=== PATIENT | male | born 1960 | race Caucasian/White ===

== ENCOUNTER 2019-11-17 10:31 | Outpatient (CLI) | payer OTHER, SELFPAY ==
--- NOTE | ~2019-11-17 | NM_ITS ---
EXAMINATION: NM bone scan whole body DATE: 11/17/2019 14:15 INDICATION: Prostate cancer. TECHNIQUE: 24.5 mCi Tc-99m HDP was administered intravenously. Delayed whole-body scintigrams were o btained. COMPARISON: CT abdomen and pelvis 11/17/2019 FINDINGS: There is joint-centered increased activity in the knees, ankles, right acromioclavicular court int, and left wrist without radiographic comparison, likely osteoarthritis. There is increased activi ty at L5-S1 correlating with severe degenerative disc disease by CT. IMPRESSION: 1. No evidence of metastatic disease. Reviewed, dictated and finalized at location B.
--- NOTE | ~2019-11-17 | CT_ITS ---
EXAMINATION: CT abdomen pelvis w con DATE: 11/17/2019 11:27 INDICATION: Prostate cancer TECHNIQUE: Computed tomography (CT) of the abdomen and pelvis was performed with 100 cc Omnipaque 350 intravenous contrast. Automated exposure control and iterative reconstruction technique were employe d. Exam dose: 1244.23 mGy-cm total exam DLP. COMPARISON: 01/28/[address] abdomen pelvis FINDINGS: There is prominent elevation the right leaf of the diaphragm with associated mild right bas ilar atelectasis. There is old pulmonary granulomatous disease on the right. The included lower lung zones are clear of infiltrate or consolidation. Heart size is within normal limits. No pericardial or pleural effusion. There are numerous stones in the dependent aspect of the gallbladder. No gallbladder wall thickening or pericholecystic fluid or inflammation. No bile duct dilatation. There are 2 probable very small hepatic cysts. The liver, spleen, pancreas, and adrenal glands and ki dneys are otherwise unremarkable. 2.5 cm duodenal diverticulum. No bowel obstruction, bowel wall thickening, pneumatosis or intraperito jony free air. No abdominal aortic aneurysm. No intraperitoneal or retroperitoneal or pelvic mass lesion or adenopat hy or ascites. The urinary bladder, prostate gland and seminal vesicles are unremarkable. There are bilateral L5 pars interarticularis defects with associated grade 1 anterolisthesis at L5-S1 . Severe degenerative disc disease at L5-S1. No suspicious osteolytic or osteoblastic lesions are noted. IMPRESSION: Cholelithiasis 2. Very small probable hepatic cysts Bilateral L5 pars interarticularis defects with associated grade 1 anterolisthesis at L5-S1 Severe degenerative disc disease at L5-S1 Reviewed, dictated and finalized at Location A. Reviewed, dictated and finalized at location A. IMPRESSION: Cholelithiasis 2. Very small probable hepatic cysts Bilateral L5 pars interarticularis defects with associated grade 1 anterolisthe sis at L5-S1 Severe degenerative disc disease at L5-S1
[2019-11-17 11:20] LABS: Estimated Glomerular Filt Rate > 60
== END 2019-11-17 10:32 | disposition home or self-care (01) ==
LOC: ANHIMG 10:39
PROVIDERS: PCP Family Medicine; Visit Provider Urology
DX: C61 Malignant neoplasm of prostate (principal); K80.20 Calculus of gallbladder without cholecystitis without obstruction; M51.37 Other intervertebral disc degeneration, lumbosacral region
CPT/HCPCS: 74177; 78306; A9561; Q9967

== ENCOUNTER 2019-12-15 09:34 | Outpatient (CLI) | payer OTHER, SELFPAY ==
--- NOTE | 2019-12-15 11:00 | ECG_ITS ---
Measurements Intervals Cabins Rate: 64 P: 19 UT: 146 QRS: 29 QRSD: 106 T: 44 QT: 391 QTc: 403 Interpretive Statements SINUS RHYTHM BASELINE ARTIFACT- I, III, AVR, AVL NORMAL ECG Electronically Signed On 12-15-2019 11:24:19 CINDER CRUSHER OPERATOR by Mark Edwards D.O.
[2019-12-15 11:30] LABS: Basophils Percent Auto 0.4 % (0.2-1.2); Eosinophils Absolute Auto 0.1 K/mm3 (0-0.3); Eosinophils Percent Auto 1.2 % (0-4.4); Immature Granulocyte Absolute 0.03 K/mm3 (0.00-0.031); Immature Granulocyte Percent A 0.4 % (0-0.5); Lymphocytes Absolute Auto 2.48 K/mm3 (0.9-3.2); Lymphocytes Percent Auto 36.1 % (18.3-44.2); Mean Corpuscular Hemoglobin 32.1 pg (26-34); Mean Corpuscular Volume 94.4 fl (80-100); Mean Platelet Volume 9.4 fl (7.4-10.4); Monocytes Absolute Auto 0.6 K/mm3 (0.1-0.6); Monocytes Percent Auto 8.2 % (2.6-8.5); Neutrophils Absolute Auto 3.7 K/mm3 (1.3-6.7); Neutrophils Percent Auto 53.7 % (45.5-73.1); Platelet Count Result 306 k/mm3 (150-375); Red Blood Count 4.98 M/mm3 (4.6-6.20); Red Cell Distribution Width 12.6 % (11.5-14.5); White Blood Count 6.9 K/mm3 (4.5-10.0)
[2019-12-15 11:38] LABS: Prothrombin Time 13.4 Seconds (11.1-14.7)
[2019-12-15 11:39] LABS: Partial Thromboplastin Time 27.4 SECONDS (22.3-36.8)
[2019-12-15 11:46] LABS: Alanine Aminotransferase 22 U/L (4-50); Albumin Level 4.7 g/dL (3.5-5.1); Alkaline Phosphatase 75 U/L (38-126); Anion Gap 9 mmol/L (8-16); Aspartate Amino Transferase 29 U/L (17-59); Bilirubin,Total 0.6 mg/dL (0.2-1.3); Blood Urea Nitrogen 25 mg/dL (9-20); Carbon Dioxide 28 mmol/L (22-30); Chloride 102 mmol/L (98-107); Estimated Glomerular Filt Rate > 60; Glucose 97 mg/dL (75-110); Potassium 4.6 mmol/L (3.4-5.0); Sodium 139 mmol/L (137-145)
== END 2019-12-15 09:35 | disposition home or self-care (01) ==
LOC: ANHSURGERY 09:36
PROVIDERS: PCP Family Medicine; Visit Provider Urology
DX: C61 Malignant neoplasm of prostate (principal); E78.2 Mixed hyperlipidemia; Z01.818 Encounter for other preprocedural examination
CPT/HCPCS: 36415; 80053; 85025; 85610; 85730; 86850; 86900; 86901; 87086; 93005

== ENCOUNTER 2019-12-23 00:25 | Outpatient (CLI) | payer OTHER, SELFPAY ==
[2019-12-23 21:19] LABS: SARS-CoV-2 RNA PCR Negative
== END 2019-12-23 00:26 | disposition home or self-care (01) ==
LOC: ANHCOVIDDT 00:26
PROVIDERS: PCP Family Medicine; Visit Provider Urology
DX: Z01.812 Encounter for preprocedural laboratory examination (principal); Z20.828 Contact with and (suspected) exposure to other viral communicable diseases; R50.9 Fever, unspecified
CPT/HCPCS: 87635; C9803; U0003

== ENCOUNTER 2019-12-26 01:02 | Day surgery (SDC) | payer OTHER, SELFPAY ==
[2019-12-15 10:35] VITALS: BP 138/76; PULSE 66; RESP 20; TEMP 36.4; O2SAT 97; BMI 32.3
--- NOTE | 2019-12-25 12:31 | WPDANESEPPF ---
Anes - Initial Pre Proc Eval Procedure: Operation Date: 12/26/19 07:30 Proposed Procedures p Robotic Assisted Nerve Sparing Prostatectomy, Possible Bilateral Pelvic Lymph Node Dissection - Zay Lane MD Date/Time: 12/25/19 12:31 Surgeon: Zay Lane MD Pre Op Diagnosis: Prostate Ca Patient Data Age: 59 Gender: M Height: 5 ft 11 in Weight: 105.3 kg Last Vital Signs Temp 97.5 F L 12/15/19 10:35 Pulse 66 12/15/19 10:35 Resp 20 12/15/19 10:35 BP 138/76 12/15/19 10:35 Pulse Ox 97 12/15/19 10:35 Allergies Allergy/AdvReac Type Severity Reaction Status Date / Time No Known Allergies Allergy Unknown Verified 12/26/19 06:39 Home Medications Medication Instructions Recorded Confirmed Type tadalafil 5 mg tablet 5 mg PO DAILY #90 tablet 10/12/19 12/26/19 Rx rosuvastatin 20 mg tablet 20 mg PO DAILY #90 tablet 11/13/19 12/26/19 Rx hydrocodone 10 mg-acetaminophen 1 tablet PO Q6H PRN #120 tablet 12/13/19 12/26/19 Rx 325 mg tablet Multivitamin 50 Plus 1 tab-cap DAILY 12/15/19 12/26/19 History aspirin [Aspirin Low Dose] 81 mg PO DAILY 12/15/19 12/26/19 History diclofenac sodium 75 mg BID 12/15/19 12/26/19 History docusate sodium [Colace] 100 mg PO BID 12/15/19 12/26/19 History esomeprazole magnesium [Nexium] 20 mg PO DAILY 12/15/19 12/26/19 History fiber 1 cap PO DAILY 12/15/19 12/26/19 History hydrocodone-acetaminophen [Colville] 1 tablet PO Q6H PRN 12/15/19 12/15/19 History omega-3 fatty acids [Fish Oil 2,000 mg PO DAILY 12/15/19 12/26/19 History Concentrate] Patient hx anesthesia problems: none Family hx anesthesia problems: none PMFSH Past Medical History Medical History (Updated 12/25/19 @ 12:32 by Armando Cesar MD) Cervical pain GERD (gastroesophageal reflux disease) Lumbar spondylosis Mixed hyperlipidemia Family History Family History Mother Family history of lung cancer Social History Social History Smoking status: Never smoker Alcohol intake: never Substance use: never Living arrangements: with family Spiritual care concerns: No Anes - Eval Final PreProcedure Day of Procedure 12/25/19 12:31 Patient weight: obese Heart: regular rate and rhythm Lungs: clear to auscultation Airway: Mallampati scale class III Neurological: alert and oriented Last oral intake: >/= 8 hours ASA classification: III Emergent: no Anesthetic plan: proceed Anesthesia type and monitoring: general ETT and standard monitoring Informed Consent: The patient's anesthetic plan and its attendant risks and benefits were discussed with the patient/family/POA. Questions were solicited and answers provided to the satisfaction of the patient/family/POA.
[2019-12-26] VITALS (15 sets, daily range): BP systolic 114–139; BP diastolic 64–88; PULSE 67–92; RESP 16–20; TEMP 36–36.9; O2SAT 92–97
[2019-12-26] MEDS: LACTATED RINGERS 1,000 ML 30 ML IV CONT ×2 (06:50→12:50)
--- NOTE | 2019-12-26 07:11 | WPDHPUPDATE1 ---
History and Physical Update Update Date/Time: 12/26/19 07:11 History and Physical has been reviewed, including an updated exam of the patient. There are NO changes in the patient's condition. Risks, benefits, and alternatives have been discussed and questions answered. Patient agrees to proceed with procedure. Proceed with robotic assist nerve sparing prostatectomy with possible PLND
--- NOTE | 2019-12-26 07:14 | WPDHPUPDATE1 ---
History and Physical Update Update Date/Time: 12/26/19 07:14 History and Physical has been reviewed, including an updated exam of the patient. There are NO changes in the patient's condition. Risks, benefits, and alternatives have been discussed and questions answered. Patient agrees to proceed with procedure. ROS - neg
[2019-12-26] MEDS: BUPIVACAINE HCL 0.5% PF 30 ML VIAL INFILTRATE (08:05)
[2019-12-26] MEDS: ceFAZolin 2 GM/D5W 50 ML 2 GM/50 ML BAG IVPB (08:05)
[2019-12-26] MEDS: ceFAZolin SODIUM 1 GM VIAL IV PUSH (12:19)
--- NOTE | 2019-12-26 12:33 | PM.PROC ---
Procedure Note - Detailed Date of procedure: 12/26/19 Pre-op diagnosis: Prostate Ca Adenocarcinoma prostate Post-op diagnosis: same Procedure performed: Robotic assisted nerve-sparing prostatectomy with bilateral pelvic lymphadenectomy Description of procedure: Patient is taken the operative suite and correctly identified. Once anesthesia was obtained he was placed in low lying dorsal lithotomy position and prepped and draped usual sterile fashion. Eighteen Albanian Archuleta was placed with 20 cc in the balloon. Supraumbilical incision was then made carried down to rectus fascia. Veress needle was inserted in the abdomen insufflated to 15 mmHg pressure. Camera port was then placed under direct vision. Appropriate working ports were placed in the usual standard locations. The robot was docked and the patient had been placed in steep Trendelenburg position. Patient had some adhesions along the sigmoid colon which were taken down. We went ahead and did a posterior approach. Seminal vesicles were dissected out in their entirety then passes were transected. Plane between the prostate and the rectum was developed. Bladder was then taken down. Dorsal venous complex was isolated after the endopelvic fascia was incised the space of Retzius developed. 0 Vicryl was used to secure the dorsal venous complex and secured to the pubic bone. Bladder neck was then taken down. It was noted that the prostate was quite adherent to the bladder neck area. We were able to dissected off the prostate. The posterior bladder neck was transected as was the prior dissected space. We then did bilateral nerve-sparing took the pedicles. We used clips for these. Dorsal venous complex was then transected. Urethra was transected. Specimen was placed in Endo-Catch bag. We did bilateral pelvic lymphadenectomy as with the borders being the Graeme's ligament, external iliac vein obturator nerve as well as the bifurcation of the vessels. Clips were placed proximally and distally. Surgicel was then placed in the obturator fossa. The [place] was then reapproximated using 0 Vicryl. The bladder neck was then reanastomosed to the urethral stump using V lock suture in a running fashion. There was a good approximation of the mucosa. 18 Albanian Archuleta was placed and filled with 10 cc in the balloon. The bladder was then filled with 200 cc of sterile water. There was no evidence of extravasation at this time. All lap count needle count sponge counts were correct. The robot was undocked. The Endo-Catch bag was then brought out through the midline incision. Midline incision was closed using 0 Vicryl in a running fashion. Subcuticular stitches were then placed. 1% lidocaine was used to anesthetize the port sites and skin. Skin was then closed using a subcuticular stitch. A Patricio-Reyes drain was then placed in the 3rd arm port site. This was secured. Patient is taken recovery room stable condition. Anesthesia: GETA Surgeon: Zay Lane MD Estimated blood loss (mL): 150 Drains: Yes Packing: No Pathology: yes Complications: No immediate complications Condition: stable Disposition: PACU
[2019-12-26] MEDS: LACTATED RINGERS 1,000 ML 125 ML IV CONT ×2 (14:40→21:32)
[2019-12-26] MEDS: HYOSCYAMINE SULFATE 0.125 MG TABLET SUBLINGUAL (14:41)
--- NOTE | 2019-12-26 14:45 | ADMGEN ---
This patient, Prabhu Hoffmann, was admitted to 2 Medical Room 241-01. Patient/family oriented to hospital policies and general routines including ID bracelet, bed and alarms, visiting hours, pain management, procedures, bathroom and other care routines, personal items, smoking policy, room service/diet, and visiting hours. Information on how to activate the Rapid Response Team has been discussed. Patient/Family are encouraged to report perceived risks to care and to ask questions if they do not understand what they are told or what they should do.
[2019-12-26] MEDS: DOCUSATE SODIUM 100 MG CAPSULE PO (16:22)
[2019-12-26] MEDS: KETOROLAC 30 MG/ML VIAL (*BKC) IV PUSH ×2 (16:27→21:31)
[2019-12-26] MEDS: HYDROcodone/acetaminophen (*CRX) 5-325 MG TABLET 2 TAB PO (17:41)
[2019-12-27 00:05] VITALS: BP 132/70; PULSE 76; RESP 16; TEMP 36.7; O2SAT 94
[2019-12-27] MEDS: KETOROLAC 30 MG/ML VIAL (*BKC) IV PUSH (03:45)
[2019-12-27 04:05] VITALS: BP 133/71; PULSE 80; RESP 16; TEMP 36.4; O2SAT 94
[2019-12-27 05:35] LABS: Hematocrit 35.6 % (42.0-52.0); Hemoglobin 11.8 g/dL (14.0-18.0)
[2019-12-27 05:51] LABS: Anion Gap 4 mmol/L (8-16); Blood Urea Nitrogen 20 mg/dL (9-20); Calcium 8.4 mg/dL (8.4-10.2); Carbon Dioxide 29 mmol/L (22-30); Chloride 102 mmol/L (98-107); Estimated CRCL calculation 93 ml/min; Estimated Glomerular Filt Rate > 60; Glucose 112 mg/dL (75-110); Potassium 4.1 mmol/L (3.4-5.0); Sodium 135 mmol/L (137-145)
[2019-12-27] MEDS: LACTATED RINGERS 1,000 ML 125 ML IV CONT (06:32)
--- NOTE | 2019-12-27 07:37 | WPDUROPN2 ---
Progress Note: A&P Assessment and Plan (1) Adenocarcinoma of prostate: Code(s): C61 - Malignant neoplasm of prostate Status: Acute Additional Plan Increase ambulation. Advance diet. If minimal PATRICE output will removed prior to discharge hopefully later today. Patient will be discharged home with Archuleta catheter and plan on catheter cystogram in week's time. Subjective Subjective Date/Time Seen: 12/27/19 07:37 Post Op day: 1 (Robotic assisted nerve-sparing prostatectomy with bilateral pelvic lymphadenectomy) Principal diagnosis: Adenocarcinoma of prostate Interval history: Patient is doing well postoperative day 1. Denies any significant discomfort. Review of Systems Review of Systems: All systems reviewed & are unremarkable except as noted in HPI and below Exam Const: General: cooperative, comfortable and no acute distress HENMT: Head: normal to inspection and no raccoon eyes Ears: hearing grossly normal bilaterally Resp: Effort & Inspection: normal respiratory effort GI: GI Palp: Yes Soft to palpation Urinary Catheter: Urinary Catheter: patent and draining and urine clear Objective Data Vital Signs Vital Signs: Vital Signs - 24 hr 12/26/19 12:50 12/26/19 13:00 12/26/19 13:10 Temperature 36.9 C Pulse Rate 87 77 75 Respiratory Rate 20 20 20 Blood Pressure 136/82 129/76 121/81 Pulse Oximetry 94 95 95 12/26/19 13:20 12/26/19 13:35 12/26/19 13:50 Temperature Pulse Rate 82 84 80 Respiratory Rate 20 18 20 Blood Pressure 137/88 129/88 135/82 Pulse Oximetry 96 97 95 12/26/19 14:05 12/26/19 14:15 12/26/19 14:20 Temperature 36.0 C L Pulse Rate 91 86 81 Respiratory Rate 16 16 16 Blood Pressure 139/87 133/88 135/80 Pulse Oximetry 95 95 93 12/26/19 14:35 12/26/19 15:05 12/26/19 16:05 Temperature 36.1 C L 36.1 C L 36.1 C L Pulse Rate 81 80 82 Respiratory Rate 16 16 16 Blood Pressure 137/80 115/64 136/82 Pulse Oximetry 95 92 93 12/26/19 18:00 12/26/19 20:05 12/27/19 00:05 Temperature 36.5 C 36.8 C 36.7 C Pulse Rate 92 80 76 Respiratory Rate 16 16 16 Blood Pressure 130/81 114/70 132/70 Pulse Oximetry 95 97 94 12/27/19 04:05 Temperature 36.4 C L Pulse Rate 80 Respiratory Rate 16 Blood Pressure 133/71 Pulse Oximetry 94 Intake/Output Intake/Output: Intake & Output 12/24/19 12/25/19 12/26/19 12/27/19 23:59 23:59 23:59 23:59 Intake Total 1720 1200 Output Total 390 680 Balance 1330 520 Meds/Results Medications: Active Medications Generic Name Dose Route Start Last Admin Trade Name Freq PRN Reason Stop Dose Admin Hydrocodone Bitart/Acetaminophen 1 tab 12/26/19 14:20 Hydrocodone/Acetaminophen (*Crx) 5-325 Mg Tablet PO Q6H PRN Pain Rated 1-3 Hydrocodone Bitart/Acetaminophen 2 tab 12/26/19 14:20 12/26/19 17:41 Hydrocodone/Acetaminophen (*Crx) 5-325 Mg Tablet PO 2 tab Q6H PRN Administration Pain Rated 4-6 Docusate Sodium 100 mg 12/26/19 17:00 12/26/19 16:22 Docusate Sodium 100 Mg Capsule PO 100 mg BID FLORIAN Administration Hyoscyamine 0.125 mg 12/26/19 14:20 12/26/19 14:41 Hyoscyamine Sulfate 0.125 Mg Tablet SUBLINGUAL 0.125 mg Q4H PRN Administration Bladder Spasm Lactated Ringer's 1,000 mls @ 125 mls/hr 12/26/19 14:20 12/27/19 06:32 Lr - Lactated Ringers Iv IV CONT 125 mls/hr .Q8H FLORIAN Administration Levofloxacin 500 mg 12/27/19 09:00 Levofloxacin Tab 500 Mg Tablet PO DAILY FLORIAN Morphine Sulfate 1 mg 12/26/19 14:20 Morphine Sulfate (*Crx) 2 Mg/Ml Inj IV PUSH Q2H PRN Breakthrough Pain Morphine Sulfate 2 mg 12/26/19 14:20 Morphine Sulfate (*Crx) 2 Mg/Ml Inj IV PUSH Q2H PRN Pain Rated 7-10 Naloxone HCl 0.1 mg 12/26/19 14:20 Naloxone Hcl 0.4 Mg/Ml Vial IV PUSH Q2M PRN Opiate Reversal Ondansetron HCl 4 mg 12/26/19 14:20 Ondansetron Inj 4 Mg/2 Ml Vial IV PUSH Q6H PRN Nausea And Vomiting Rosuvastatin Calci
[2019-12-27] MEDS: DOCUSATE SODIUM 100 MG CAPSULE PO (08:21)
[2019-12-27] MEDS: ROSUVASTATIN 10 MG TABLET 20 MG PO (08:21)
[2019-12-27] MEDS: HYDROcodone/acetaminophen (*CRX) 5-325 MG TABLET 2 TAB PO (08:27)
--- NOTE | 2019-12-27 08:27 | WPDANESPN ---
Anes - Prog Note Post-Op Date/Time: 12/27/19 08:27 Cardiovascular status: normal Respiratory status: normal Airway patency: baseline Mental status: baseline Post-Op hydration status: normal Vital Signs: Last Vital Signs Temp 36.4 C L 12/27/19 04:05 Pulse 80 12/27/19 04:05 Resp 16 12/27/19 04:05 BP 133/71 12/27/19 04:05 Pulse Ox 94 12/27/19 04:05 Pain Score (VAS): 0 I/O: Intake & Output 12/26/19 12/27/19 12/27/19 23:59 07:59 15:59 Intake Total 1470 1200 Output Total 250 680 Balance 1220 520 Laboratory Tests 12/27/19 05:03 12/27/19 05:03 12/27/19 12/27/19 05:03 05:03 Hgb 11.8 L D Hct 35.6 L Sodium 135 L Potassium 4.1 Chloride 102 Carbon Dioxide 29 Anion Gap 4 L BUN 20 Creatinine 0.90 Estim Creat Clear Calc 93 Estimated GFR > 60 Glucose 112 H Calcium 8.4 Post-procedural complaints: none Patient Feedback: Patient satisfied with anesthetic care.
[2019-12-27 10:05] VITALS: BP 120/73; PULSE 80; RESP 18; TEMP 36.6; O2SAT 97
[2019-12-27 14:02] VITALS: BP 141/76; PULSE 83; RESP 16; TEMP 36.6; O2SAT 98
--- NOTE | 2019-12-27 15:40 | PC.NURSE ---
I called Dr. Garcia nurse for discharge instructions. The nurse requested that I put in discharge instructions as follows: no lifting more than 10-15 pounds for 6-8 weeks, the patient may shower, but no soaking in the tub and to follow up with Dr. Garcia on 01/03/2020 at 0800.
[2019-12-27] MEDS: HYDROcodone/acetaminophen (*CRX) 5-325 MG TABLET 1 TAB PO (15:52)
== END 2019-12-27 16:23 | disposition home or self-care (01) ==
LOC: ANHSURGERY 11:33 → ANH2MED 14:41
PROVIDERS: PCP Family Medicine; Visit Provider Urology
PROC: 0VT04ZZ Resection of Prostate, Percutaneous Endoscopic Approach (ICD-10-PCS; CPT 55867; principal; 2019-12-26 07:30)
DX: C61 Malignant neoplasm of prostate (principal); E78.2 Mixed hyperlipidemia; K21.9 Gastro-esophageal reflux disease without esophagitis; M47.816 Spondylosis without myelopathy or radiculopathy, lumbar region; Z79.82 Long term (current) use of aspirin; E66.9 Obesity, unspecified; Z68.31 Body mass index [BMI] 31.0-31.9, adult
CPT/HCPCS: 55866; 38571; 36415; 80048; 85014; 85018; 88307; 88309; A9270; J0690; J1100; J1170; J1885; J2250; J2405; J2704; J2710; J3010; J7030; J7120; Q9968

== ENCOUNTER 2020-01-03 07:59 | Outpatient (CLI) | payer OTHER, SELFPAY ==
--- NOTE | ~2020-01-03 | XR_ITS ---
EXAMINATION: CYSTOGRAM DATE: 01/03/2020 09:03 INDICATION: Prostate cancer follow-up TECHNIQUE: Initial plating foreman radiograph of the pelvis was performed. There was retrograde administration of Omnipaque 350 mixed with saline contrast into patient's existing hernandez catheter. Fluoroscopic sanjeev ges of the pelvis were obtained. A post-void image was also performed. FINDINGS: There is normal filling of the bladder without evidence for contour abnormality, extravasat ion or reflux. There are pelvic phleboliths. IMPRESSION: 1. Unremarkable cystogram without evidence for bladder extravasation or reflux. Reviewed, dictated and finalized at location A. PRINT DUPLICATOR IMPRESSION: 1. Unremarkable cystogram without evidence for bladder extravasation or reflux .
== END 2020-01-03 08:00 | disposition home or self-care (01) ==
PROVIDERS: PCP Family Medicine; Visit Provider Urology
DX: C61 Malignant neoplasm of prostate (principal)
CPT/HCPCS: 51600; 74430; Q9967

== ENCOUNTER → 2020-07-02 01:47 | Outpatient (CLI) | payer OTHER, SELFPAY ==
[2020-07-03 19:27] LABS: SARS-CoV-2 RNA PCR Negative
== END ==
PROVIDERS: PCP Family Medicine; Visit Provider Internal Medicine Gastroenterology
DX: Z01.812 Encounter for preprocedural laboratory examination (principal); Z20.822 Contact with and (suspected) exposure to COVID-19
CPT/HCPCS: C9803; U0003; U0005

== ENCOUNTER 2020-07-05 02:14 | Day surgery (SDC) | payer OTHER, SELFPAY ==
[2020-06-27 13:53] VITALS: BMI 32.3
[2020-07-05 09:23] VITALS: BP 157/92; PULSE 77; RESP 18; TEMP 35.8; O2SAT 96
[2020-07-05] MEDS: LACTATED RINGERS 1,000 ML 150 ML IV CONT (09:29)
--- NOTE | 2020-07-05 09:29 | WPDANESEPPF ---
Anes - Initial Pre Proc Eval Procedure: Operation Date: 07/05/20 10:30 Proposed Procedures p Screening Colonoscopy - Mukul Calhoun MD Date/Time: 07/05/20 09:29 Surgeon: Mukul Calhoun MD Pre Op Diagnosis: hx of colon polyps, neoplasm screening Patient Data Age: 60 Gender: M Height: 5 ft 11 in Weight: 106.7 kg Last Vital Signs Temp 96.5 F L 07/05/20 09:23 Pulse 77 07/05/20 09:23 Resp 18 07/05/20 09:23 BP 157/92 H 07/05/20 09:23 Pulse Ox 96 07/05/20 09:23 Allergies Allergy/AdvReac Type Severity Reaction Status Date / Time No Known Allergies Allergy Unknown Verified 07/05/20 09:21 Home Medications Medication Instructions Recorded Confirmed Type aspirin [Aspirin Low Dose] 81 mg PO DAILY 12/15/19 06/27/20 History docusate sodium [Colace] 100 mg PO BID 12/15/19 06/27/20 History esomeprazole magnesium [Nexium] 20 mg PO DAILY 12/15/19 06/27/20 History fiber 1 cap PO DAILY 12/15/19 06/27/20 History omega-3 fatty acids 2,000 mg PO DAILY 12/15/19 06/27/20 History orphenadrine citrate 100 mg 100 mg PO .QHS #30 tablet 03/18/20 06/27/20 Rx tablet,extended release tadalafil 5 mg tablet 5 mg PO DAILY #90 tablet 04/01/20 Rx diclofenac sodium 75 mg 75 mg PO BID #60 tablet 04/29/20 06/27/20 Rx tablet,delayed release rosuvastatin 20 mg tablet See Rx Instructions .ROUTE 05/05/20 06/27/20 Rx .COMPLEX #90 tablet hydrocodone 10 mg-acetaminophen 1 tablet PO Q6H PRN #120 tablet 06/14/20 06/27/20 Rx 325 mg tablet Patient hx anesthesia problems: none Family hx anesthesia problems: none PMFSH Past Medical History Medical History (Updated 03/18/20 @ 17:01 by Jarod Lopez MD) BMI 32.0-32.9,adult BMI 34.0-34.9,adult Cervical pain Gangrene of gallbladder in cholecystitis GERD (gastroesophageal reflux disease) Leg muscle spasm Lumbar spondylosis Mixed hyperlipidemia Urinary leakage Family History Family History Mother Family history of lung cancer Social History Social History Smoking status: Never smoker Alcohol intake: never Substance use: never Substance use type: does not use Gender identity (if verbalized by the patient): Male Spiritual care concerns: No Anes - Eval Final PreProcedure Day of Procedure 07/05/20 09:29 Patient weight: obese Heart: regular rate and rhythm Lungs: clear to auscultation Airway: Mallampati scale class II Neurological: alert and oriented Last oral intake: >/= 8 hours ASA classification: III Emergent: no Anesthetic plan: proceed Anesthesia type and monitoring: general GIVS and standard monitoring Informed Consent: The patient's anesthetic plan and its attendant risks and benefits were discussed with the patient/family/POA. Questions were solicited and answers provided to the satisfaction of the patient/family/POA.
--- NOTE | 2020-07-05 09:45 | PM.HPGS ---
History of Present Illness History of Present Illness Consent: Risks, benefits, and alternatives have been discussed and questions answered. Patient agrees to proceed with procedure. Chief complaint: hx of colon polyps, neoplasm screening Narrative: Prabhu Hoffmann is a 60 year old male here for colon cancer screening. He had a polyp removed 10 years ago Review of Systems Review of Systems: All systems reviewed & are unremarkable except as noted in HPI and below PMFSH Past Medical History Medical History BMI 32.0-32.9,adult BMI 34.0-34.9,adult Cervical pain Gangrene of gallbladder in cholecystitis GERD (gastroesophageal reflux disease) Leg muscle spasm Lumbar spondylosis Mixed hyperlipidemia Urinary leakage Family History Family History Mother Family history of lung cancer Social History Social History Smoking status: Never smoker Alcohol intake: never Substance use: never Substance use type: does not use Gender identity (if verbalized by the patient): Male Spiritual care concerns: No Meds Home Medications and Allergies Home Medications Medication Instructions Recorded Confirmed Type aspirin [Aspirin Low Dose] 81 mg PO DAILY 12/15/19 07/05/20 History docusate sodium [Colace] 100 mg PO BID 12/15/19 07/05/20 History esomeprazole magnesium [Nexium] 20 mg PO DAILY 12/15/19 07/05/20 History fiber 1 cap PO DAILY 12/15/19 07/05/20 History omega-3 fatty acids 2,000 mg PO DAILY 12/15/19 07/05/20 History orphenadrine citrate 100 mg 100 mg PO .QHS #30 tablet 03/18/20 07/05/20 Rx tablet,extended release tadalafil 5 mg tablet 5 mg PO DAILY #90 tablet 04/01/20 07/05/20 Rx diclofenac sodium 75 mg 75 mg PO BID #60 tablet 04/29/20 07/05/20 Rx tablet,delayed release rosuvastatin 20 mg tablet See Rx Instructions .ROUTE 05/05/20 07/05/20 Rx .COMPLEX #90 tablet hydrocodone 10 mg-acetaminophen 1 tablet PO Q6H PRN #120 tablet 06/14/20 07/05/20 Rx 325 mg tablet Allergies Allergy/AdvReac Type Severity Reaction Status Date / Time No Known Allergies Allergy Unknown Verified 07/05/20 09:21 Vital Signs Vital Signs - 24 hr 07/05/20 09:23 Temperature 35.8 C L Pulse Rate 77 Respiratory Rate 18 Blood Pressure 157/92 H Pulse Oximetry 96 Exam Resp: Auscultation: clear to auscultation bilaterally Cardio: Rate: regular rate Rhythm: regular rhythm GI: GI Palp: Yes Soft to palpation and No Tenderness to palpation present (GI) Assessment and Plan Assessment and plan (1) Colon cancer screening: Code(s): Z12.11 - Encounter for screening for malignant neoplasm of colon Status: Acute Assessment and Plan: Colonoscopy with possible biopsy or polypectomy or cautery or injection of substances.
[2020-07-05 10:43] VITALS: BP 121/87; PULSE 70; RESP 18; O2SAT 96
[2020-07-05 10:53] VITALS: BP 130/89; PULSE 63; RESP 18; O2SAT 97
[2020-07-05 11:03] VITALS: BP 150/103; PULSE 66; RESP 17; O2SAT 98
== END 2020-07-05 11:17 | disposition home or self-care (01) ==
PROVIDERS: PCP Family Medicine; Visit Provider Internal Medicine Gastroenterology
PROC: 0DJD8ZZ Inspection of Lower Intestinal Tract, Via Natural or Artificial Opening Endoscopic (ICD-10-PCS; CPT 45378; principal; 2020-07-05 10:30)
DX: Z12.11 Encounter for screening for malignant neoplasm of colon (principal); Z86.010 Personal history of colon polyps; K21.9 Gastro-esophageal reflux disease without esophagitis; M47.816 Spondylosis without myelopathy or radiculopathy, lumbar region; E78.2 Mixed hyperlipidemia; Z79.82 Long term (current) use of aspirin; E66.8 Other obesity; Z68.32 Body mass index [BMI] 32.0-32.9, adult
CPT/HCPCS: 45378; C9803; J2001; J2704; J7120; U0003; U0005

== ENCOUNTER 2021-12-11 14:18 | Outpatient (CLI) | payer OTHER, SELFPAY ==
--- NOTE | ~2021-12-11 | DEXA_ITS ---
Bone Density Report Name: CHARLOTTE OLIVO Age: 61 Sex: Male Ethnicity: White Date of : 1960 Indication: height loss; rheumatoid arthritis; Referring Provider: LUBNA LUNSFORD Study: Bone densitometry was performed. Exam Date: December 11, 2021 Accession number: [id number] Bone Density: Region BMD T-score Z-score Classification AP Spine(L1-L4) 1.093 0.0 0.7 Normal Femoral Neck (Left) 0.847 -0.6 0.4 Normal Total Hip (Left) 1.103 0.5 0.9 Normal Femoral Neck (Right) 0.809 -0.9 0.1 Normal Total Hip (Right) 1.052 0.1 0.6 Normal Total Hip Mean 1.077 0.3 0.8 Normal World Health Organization criteria for BMD impression classify patients as: Normal (T-score at or above -1.0), Osteopenia (T-score between -1.0 and -2.5), or Osteoporosis (T-score at or below -2.5). 10-year Fracture Risk: FRAX not reported because: All T-scores for Spine Total, Hip Total, Femoral Neck at or above -1.0 Clinical Information Provided by Patient: Has rheumatoid arthritis Patient maximum height was 71 Drinks caffeinated beverages Impression: The patient has normal bone mass. Discussion: BONE DENSITY IS ABOVE THE MINIMUM DESIRABLE LEVEL AT ALL SKELETAL SITES TESTED. This patient?s bone mineral density is above the minimum desirable level (T-score -1.0 or better) at all sites measured. The patient should follow a healthful lifestyle (good nutrition with adequate calcium and vitamin D, and appropriate weight-bearing exercise). Follow-Up: Consider repeating this study in 5 years or sooner if there is some new clinical indication. Reported by: PIEDAD on 12/11/2021 2:45:00 PM. Reviewed, dictated and finalized at location A. [facility]OSPITALNaun
== END 2021-12-11 14:19 | disposition home or self-care (01) ==
PROVIDERS: PCP Family Medicine; Visit Provider Nurse Practitioner Adult Health
DX: M85.88 Other specified disorders of bone density and structure, other site (principal)
CPT/HCPCS: 77080

== ENCOUNTER 2022-01-20 06:35 | Outpatient (CLI) | payer OTHER, SELFPAY ==
--- NOTE | ~2022-01-20 | XR_ITS ---
EXAMINATION: XR chest 2V DATE: 01/20/2022 06:54 INDICATION: Shortness of breath TECHNIQUE: PA and lateral views of the chest are obtained. COMPARISON: 02/25/2007 FINDINGS: There is subsegmental atelectasis of the lower lobes. There is elevation of the right hemid iaphragm. No pleural effusion or pneumothorax. The cardiomediastinal silhouette is normal. There is S -shaped curvature of the thoracic spine. IMPRESSION: 1. Mild atelectasis of the lower lobes Reviewed, dictated and finalized at location A. CONSULTANT
[2022-01-20 07:31] LABS: Alanine Aminotransferase 33 U/L (6-50); Albumin Level 4.2 g/dL (3.5-5.1); Alkaline Phosphatase 81 U/L (38-126); Anion Gap 5 mmol/L (8-16); Aspartate Amino Transferase 34 U/L (17-59); Bilirubin,Total 0.4 mg/dL (0.2-1.3); Blood Urea Nitrogen 19 mg/dL (9-20); Calcium 9.2 mg/dL (8.4-10.2); Carbon Dioxide 29 mmol/L (22-30); Chloride 105 mmol/L (98-107); Cholesterol 171 mg/dL (0-200); Estimated Glomerular Filt Rate > 60; Glucose 104 mg/dL (65-110); HDL Direct 40 mg/dL; Potassium 4.3 mmol/L (3.4-5.0); Sodium 139 mmol/L (137-145); Triglycerides 245 mg/dL (<150)
[2022-01-20 07:42] LABS: LDL Cholesterol Direct 77 mg/dL
[2022-01-20 08:10] LABS: Basophils Percent Auto 1.2 % (0.2-1.2); Eosinophils Absolute Auto 0.2 K/mm3 (0-0.3); Hematocrit 38.5 % (42.0-52.0); Hemoglobin 12.5 g/dL (14.0-18.0); Immature Granulocyte Absolute 0.01 K/mm3 (0.00-0.031); Immature Granulocyte Percent A 0.3 % (0-0.5); Mean Corpuscular HGB Conc 32.5 g/dl (32-36); Mean Corpuscular Hemoglobin 31.7 pg (26-34); Mean Corpuscular Volume 97.7 fl (80-100); Mean Platelet Volume 9.4 fl (7.4-10.4); Monocytes Absolute Auto 0.4 K/mm3 (0.1-0.6); Neutrophils Absolute Auto 1.9 K/mm3 (1.3-6.7); Neutrophils Percent Auto 56.5 % (45.5-73.1); Platelet Count Result 277 k/mm3 (150-375); Red Blood Count 3.94 M/mm3 (4.6-6.20); Red Cell Distribution Width 12.4 % (11.5-14.5); White Blood Count 3.3 K/mm3 (4.5-10.0)
== END 2022-01-20 06:36 | disposition home or self-care (01) ==
PROVIDERS: PCP Family Medicine; Visit Provider Family Medicine
DX: R06.09 Other forms of dyspnea (principal); E78.2 Mixed hyperlipidemia; Z13.220 Encounter for screening for lipoid disorders; R07.9 Chest pain, unspecified; J98.11 Atelectasis
CPT/HCPCS: 36415; 71046; 80048; 80061; 80076; 84443; 85025

== ENCOUNTER 2022-02-12 08:04 | Outpatient (CLI) | payer OTHER, SELFPAY ==
--- NOTE | ~2022-02-12 | NM_ITS ---
EXAMINATION: NM stress w perf spect multi DATE: 02/12/2022 10:17 INDICATION: Chest pain. TECHNIQUE: Rest images were obtained following intravenous administration of 10.5 mCi Tc99m tetrofosm in (Myoview). The patient performed an exercise activity. At peak exercise, 34.0 mCi Tc99m tetrofosmi n (Myoview) was administered intravenously, and supine and prone stress images were obtained. Data wa s reconstructed into short axis and horizontal and vertical long axis SPECT images. Gated SPECT image s were also obtained. COMPARISON: CT abdomen and pelvis 11/17/2019 FINDINGS: There is no definite reversible or fixed perfusion abnormality to suggest ischemia or infar ction. There is no segmental wall motion abnormality. Left ventricular ejection fraction measures 6 1%. IMPRESSION: 1. No definite ischemia or infarct. 2. Normal left ventricular ejection fraction measuring 61%. Reviewed, dictated and finalized at location A. FURNACE TENDER
--- NOTE | 2022-02-12 08:30 | EST_ITS ---
Patient Info Name: Prabhu Hoffmann Age: 61 years : 1960 Gender: Male Ht: 73 in Wt: 240 lbs BSA: 2.40 m2 HR: 68 bpm BP: 132 / 96 mmHg Exam Date: 02/12/2022 9:09 AM Exam Location: [facility] Stress Patient Status: Outpatient Admit Date: 02/12/2022 Staff Ordering Physician: Jarod Lopez MD Attending Provider: Jarod Lopez MD Exercise Technologist: Joanne Sommer CT Exercise Physician: Mark Edwards DO Exam Type: CA stress test treadmill w NM Study Info Indications R06.00 - Dyspnea, unspecified R07.9 - Chest pain, unspecified A nuclear stress test was performed. Summary 1. 1. Negative Tristian exercise stress test for ischemic ST changes by ECG criteria. However, patient achieved only 75% MPHR for age group which reduces sensitivity of the test. 2. 2. Reduced functional capacity, achieving 8 METs of workload. 3. 3. Hypertensive response to exercise. 4. 4. Appropriate HR response to exercise. 5. 5. Appropriate HR recovery at 1 minute post exercise. 6. 6. Nuclear scan to follow and will be reported separately. Please correlate with it. 7. 7. Patient informed of the above results. Protocol: [facility] Stress ECG Details Stage: REST Duration (min): 0 min : 59 sec Speed (mph): 0.0 Grade (%): 0 HR (bpm): 68 SBP (mmHg): 132 DBP (mmHg): 96 METS: --- Stage: REST Duration (min): 6 min : 32 sec Speed (mph): 0.0 Grade (%): 0 HR (bpm): 68 SBP (mmHg): 132 DBP (mmHg): 96 METS: --- Stage: STAGE 1 Duration (min): 1 min : 0 sec Speed (mph): 1.7 Grade (%): 10 HR (bpm): 91 SBP (mmHg): 132 DBP (mmHg): 96 METS: --- Stage: STAGE 1 Duration (min): 2 min : 0 sec Speed (mph): 1.7 Grade (%): 10 HR (bpm): 100 SBP (mmHg): 132 DBP (mmHg): 96 METS: --- Stage: STAGE 1 Duration (min): 3 min : 0 sec Speed (mph): 1.7 Grade (%): 10 HR (bpm): 104 SBP (mmHg): 177 DBP (mmHg): 92 METS: --- Stage: STAGE 2 Duration (min): 1 min : 0 sec Speed (mph): 2.5 Grade (%): 12 HR (bpm): 112 SBP (mmHg): 177 DBP (mmHg): 92 METS: --- Stage: STAGE 2 Duration (min): 2 min : 0 sec Speed (mph): 2.5 Grade (%): 12 HR (bpm): 110 SBP (mmHg): 177 DBP (mmHg): 92 METS: --- Stage: STAGE 2 Duration (min): 3 min : 0 sec Speed (mph): 2.5 Grade (%): 12 HR (bpm): 113 SBP (mmHg): 180 DBP (mmHg): 86 METS: --- Stage: STAGE 3 Duration (min): 0 min : 40 sec Speed (mph): 3.4 Grade (%): 14 HR (bpm): 118 SBP (mmHg): 180 DBP (mmHg): 86 METS: --- Stage: RECOVERY Duration (min): 0 min : 19 sec Speed (mph): 0.0 Grade (%): 0 HR (bpm): 116 SBP (mmHg): 209 DBP (mmHg): 97 METS: --- Stage: RECOVERY Duration (min): 1 min : 19 sec Speed (mph): 0.0 Grade (%): 0 HR (bpm): 90 SBP (mmHg): 209 DBP (mmHg): 97 METS: --- Stage: RECOVERY
== END 2022-02-12 08:05 | disposition home or self-care (01) ==
PROVIDERS: PCP Family Medicine; Visit Provider Family Medicine
DX: R07.9 Chest pain, unspecified (principal); R06.09 Other forms of dyspnea
CPT/HCPCS: 78452; 93017; A9502; J2785

== ENCOUNTER 2024-09-20 02:01 | Day surgery (SDC) | payer MEDICARE, OTHER, SELFPAY ==
[2024-09-05 10:19] VITALS: BMI 32.8
--- OUTSIDE RECORDS SUMMARY | 2024-09-20 02:06 | XMS_ITS | Clinical Summary ---
Author Organization [facility] Address [address] [place] [address] Care Team Providers Care Hydraulic Plumber Name Role Phone Jarod Lopez MD Primary Care Provider [phone] Source Comments [facility],non-owned Affiliates and Associated Physician Practices is amultiple site organization consisting of ambulatory clinics and hospital sitesin [place], [place], [place] and [place]. This disclosure is being madepursuant to the Care Everywhere program and may not contain all information available regarding this patient. Last updated 17.[facility] Allergies No known active allergies Medications * Be aware that medications may not be up to date on this document. Alwaysverify current medications with the patient. rosuvastatin (Crestor) 20 MG tablet Take 1 (one) tablet by mouth once daily 2 Active Multiple Vitamins-Minera ls (Essential Balance) TABS Active esomeprazole (NexIUM) 20 MG capsule Take 1 (one) capsule by mouth as needed for Heartburn Active diclofenac sodium EC (Voltaren) 75 MG tablet Take 1 (one) tablet by mouth 2 times daily with morning and evening meal 3 Active HYDROcodone-darius taminophen (Bogota) 10-325 MG tablet Take 1 (one) tablet by mouth every 6 hours as needed pain 3 Active gabapentin (Neurontin) 100 MG capsule 4 Active cephalexin (Keflex) 500 MG capsule 3 Active Vuity 1.25 % SOLN 1 DROP INTO BOTH EYES EVERY DAY 3 Active Gemtesa 75 MG tablet 4 Active Active Problems Problem Noted Date Diagnosed Date Low back pain 06/04/2022 11/04/2022 Adenocarcinoma of prostate 01/07/2020 Basal cell carcinoma (BCC) of back 01/07/2020 Spondylosis of lumbar spine 01/07/2020 Neck pain 01/07/2020 Mixed hyperlipidemia 01/07/2020 Erectile dysfunction 01/07/2020 Social History Tobacco Use Types Packs/Day Years Used Date Smoking Tobacco: Never Smokeless Tobacco: Never Tobacco Cessation:Counseling Given: Not Answered Alcohol Use Standard Drinks/Week Comments Never 0 (1 standard drink = 0.6 oz pur e alcohol) AUDIT-C Answer Date Recorded Q1: How often do you have a drink containing alcohol? Never 05/07/2022 Q2: How many drinks containi ng alcohol do you have on a typical day when you are drinking? Patient does not drink Q3: How often do you have si x or more drinks on one occasion? 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 Gender Identity Not on file Sexual Orientation Not on file Last Filed Vital Signs Vital Sign Reading Time Taken Comments Blood Pressure 123/85 05/05/2023 8:44 AM CDT Pulse 77 05/05/2023 8:44 AM CDT Temperature 36.8 C (98.3 F) 05/05/2023 8:44 AM CDT Respiratory Rate 18 11/04/2022 9:19 AM CDT Oxygen Saturation 94% 05/05/2023 8:44 AM CDT Inhaled Oxygen Concentration - - Weight 110.7 kg (244 lb) 05/05/2023 8:44 AM CDT Height 180.3 cm (5' 11) 05/05/2023 8:44 AM CDT Body Mass Index 34.03 05/05/2023 8:44 AM CDT Plan of Treatment Health Maintenance Due Date Last Done Comments COLOGUARD (AGES 45-75) - COLON CA SCREENING 1960 COLON MONITORING 1960 COLONOSCOPY - COLON CA SCREENING 1960 CT COLONOGRAPHY - COLON CA SCREENING 1960 Colorectal Cancer Screening 1960 FIT - COLON CA SCREENING 1960 FLEX SIG - COLON CA SCREENING 1960 HIV SCREENING 06/07/1974 HEPATITIS C SCREENING 06/03/1977 DTAP/TDAP/TD VACCINES (1 - Tdap) 06/07/1978 PNEUMOCOCCAL VACCINE 50+ (1 of 1 - PCV) 06/07/2009 ZOSTER VACCINE (1 of 2) 06/07/2009 COVID-19 VACCINE (1 - season) 2023 DEPRESSION SCREENING 02/09/2024 INFLUENZA VACCINE (#1) 2024 SCREENING FOR DIABETES 05/11/2025 3, 05/10/2022, 05/09/2022, Additional history exists Respiratory Syncytial Virus (RSV) Vaccine Pt: or over 60 yrs (1 - 1-dose 75+ series) 06/07/2034 HEPATITIS B VACCINE Aged Out No longe r eligible based on patient's age to complete this topic HIB VACCINE Aged Out No longer eligi ble based on patient's age to complete this topic HPV VACCINE Aged Out No longer eligi ble based on patient's age to complete this topic MENINGOCOCCAL (Group B) VACCINE SHARED DECISION-MAKING Aged Out No longer eligible based on patient's age to complete this topic MENINGOCOCCAL GROUPS A/C/Y/W VACCINE Aged Out No longer eligible based on patient's age to complete this topic Medical Devices Implanted Type Area Customer Engagement Manager Device Identifier Shelf Expiration Date Model / Serial / Lot Graft Bone Kore Fbr Sam Bone Fbr Algrf - [id number] Implanted:Qty: 1 on 05/07/2022 by Fabricio Rojas MD at [facility] N/A: Spine Lumbar Musculoskeletal Transplant Foundati 04/15/2023 [id number] / [id number] / Graft Bone Kore Fbr Sam Bone Fbr Algrf - [id number] Implanted:Qty: 1 on 05/07/2022 by Fabricio Rojas MD at [facility] N/A: Spine Lumbar Musculoskeletal Transplant Foundati 04/15/2023 [id number] / [id number] / Corelink 22mm X 10mm X 12 Degree Implanted:Qty: 2 on 05/07/2022 by Fabricio Rojas MD at [facility] N/A: Spine Lumbar Core Link [employer]c 10/29/2025 [id number] / / [id number] Screw Set Spne [place] 5500 Ser Implanted:Qty: 4 on 05/07/2022 by Fabricio Rojas MD at [facility] N/A: Spine Lumbar [employer] [id number] / / 7.5 X 40mm Screw Implanted:Qty: 4 on 05/07/2022 by Fabricio Rojas MD at [facility] N/A: Spine Lumbar Core [employer]c [id number] / / Screw 7.5mm 45mm 2 Qd Ld Spne Pdcl [place] Implanted:Qty: 1 on 05/07/2022 by Fabricio Rojas MD at [facility] N/A: Spine Lumbar Core [employer] [id number] / / 35mm Pre-Bent Cocr Rods Implanted:Qty: 2 on 05/07/2022 by Fabricio Rojas MD at [facility] N/A: Spine Lumbar Core [employer] [id number] / / Procedures Procedure Name Priority Date/Time Associated Diagnosis Comments BASIC METABOLIC PANEL (CALCIUM TOTAL) Routine 05/11/2022 12:46 AM CDT Spondylosis of lumbar spine from Last 3 Months or Most Recently Relevant to Health Maintenance Results * (ABNORMAL) BASIC METABOLIC PANEL (CALCIUM TOTAL) (05/11/2022 12:46 AM CDT) BUN 15 7 - 26 mg/dL 05/11/2022 1:52 AM [facility] Creatinine 0.88 0.71 - 1.16 mg/dL 05/11/2022 1:52 AM [facility] Sodium 141 136 - 145 mmol/L 05/11/2022 1:52 AM [facility] Potassium 3.9 3.5 - 4.5 mmol/L 05/11/2022 1:52 AM [facility] Chloride 103 98 - 107 mmol/L 05/11/2022 1:52 AM [facility] CO2 25 22 - 29 mmol/L 05/11/2022 1:52 AM [facility] Glucose 154(H) 70 - 115 mg/dL 05/11/2022 1:52 AM [facility] Calcium 9.6 8.4 - 10.2 mg/dL 05/11/2022 1:52 AM [facility] Anion Gap 17 8 - 18 05/11/2022 1:52 AM [facility] BUN/Creatinine Ratio 17 7 - 23 05/11/2022 1:52 AM [facility] Osmolality Calculated 296 270 - 300 mOsm/kg 05/11/2022 1:52 AM [facility] eGFR by CKD-EPI >90 >=90 mL/min/1.7 3 m2 05/11/2022 1:52 AM [facility] Blood BLOOD SPECIMEN / Unknown Lab Venipuncture / Unknown 05/11/2022 12:46 AM CDT 05/11/2022 1:25 AM CDT us Fabricio Rojas MD LAB - CHEMISTRY ORDERABLES F inal Result [facility] [address] [place] [address], [facility] [phone] from Last 3 Months or Most Recently Relevant to Health Maintenance Insurance [facility] CIG[employer] Advance Directives * Full Code (Latest Code Status on File) Date Activated Date Inactivated Comments 05/07/2022 11:42 AM 05/11/2022 4:35 PM * Full Code Date Activated Date Inactivated Comments 05/07/2022 11:42 AM 05/07/2022 11:42 AM Care Teams Hydraulic Plumber Relationship Specialty Start Date End Date Jarod Lopez MD [address] [place] [address] PCP - General 12/27/19
--- OUTSIDE RECORDS SUMMARY | 2024-09-20 02:06 | XMS_ITS | Clinical Summary ---
Author Organization [facility] Address [address] [place] [id number] Care Team Providers Care Network Operations Lead Name Role Phone Jarod Lopez MD Primary Care Provider [phone] Allergies No known active allergies Medications esomeprazole (NEXIUM) 20 MG capsule Take 20 mg by mouth every morning before breakfast. 12/15/2019 Active OMEGA-3 FATTY ACIDS OR Take 2,000 mg by mouth 2 (two) times a day. 12/15/2019 Active rosuvastatin 20 MG tablet Take 20 mg by mouth nightly at bedtime. Active multivitamin tablet Take 1 tablet by mouth daily. Active aspirin EC (ASPIRIN EC) 81 MG tablet Take 81 mg by mouth nightly at bedtime. Active diclofenac EC 75 MG tablet Take 75 mg by mouth 2 (two) times daily. Active tamsulosin (FLOMAX) 0.4 MG Cap Take 1 capsule (0.4 mg total) by mouth daily. 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 gion 01/07/2020 Disorder of bursae of shoulder region 01/07/2020 Erectile dysfunction 01/07/2020 Mixed hyperlipidemia 01/07/2020 Neck pain 01/07/2020 Shoulder joint pain 01/07/2020 Spondylosis of lumbar spine 01/07/2020 Upper respiratory infection 01/07/2020 Resolved Problems Problem Noted Date Diagnosed Date Resolved Date Encounter for screening for malignant neoplasm of prostate 01/07/2020 01/08/2020 Immunizations Immunization Administration Dates Next Due Tdap (Adacel) 04/30/2020 Family History Medical History Relation Comments No Known Problems Father Cancer Mother Cancer Sister Relation Status Comments Father Mother Sister Social History Tobacco Use Types Packs/Day Years Used Date Smoking Tobacco: Never Smokeless Tobacco: Never Alcohol Use Standard Drinks/Week Comments Not Currently 0 (1 standard drink = 0.6 oz pur e alcohol) Sex and Gender Information Value Date Recorded Sex Assigned at Not on file Legal Sex Male 8:03 PM CDT Gender Identity Not on file Sexual Orientation Not on file Last Filed Vital Signs Vital Sign Reading Time Taken Comments Blood Pressure 154/94 12/12/2023 8:16 PM WAITER/WAITRESS Pulse 65 12/12/2023 8:16 PM WAITER/WAITRESS Temperature 36.1 C (97 F) 12/12/2023 8:16 PM WAITER/WAITRESS Respiratory Rate 16 12/12/2023 8:16 PM WAITER/WAITRESS Oxygen Saturation 96% 12/12/2023 8:16 PM WAITER/WAITRESS Inhaled Oxygen Concentration - - Weight 106.6 kg (235 lb) 12/12/2023 4:25 PM WAITER/WAITRESS Height 180.3 cm (5' 11) 12/12/2023 4:25 PM WAITER/WAITRESS Body Mass Index 32.78 12/12/2023 4:25 PM WAITER/WAITRESS Plan of Treatment Health Maintenance Due Date Last Done Comments Colorectal Cancer Screening Colonoscopy (10 Years) 1960 Pneumococcal Vaccine: 50+ Years (1 of 1 - PCV) 06/07/2009 Zoster Vaccines (1 of 2) 06/07/2009 COVID-19 Vaccine ( - 2023-2 5 season) 2023 DTaP, Tdap and Td Vaccines ( 3 - Td or Tdap) 04/30/2030 04/30/2020, 07/23/2014 RSV Immunization or 60+ Years (1 - 1-dose 75+ series) 06/07/2034 Hepatitis C Completed 07/04/2019 Meningococcal B Vaccine Aged Out No l onger eligible based on patient's age to complete this topic Meningococcal Vaccine Aged Out No meg mariel eligible based on patient's age to complete this topic RSV Immunizations Under 20 Months Aged Out No longer eligible b ased on patient's age to complete this topic Procedures Procedure Name Priority Date/Time Associated Diagnosis Comments HEPATITIS C ANTIBODY Routine 07/04/2019 9:37 AM CDT Special screening for malignant neoplasm of prostate from Last 3 Months or Most Recently Relevant to Health Maintenance Results * HEPATITIS C ANTIBODY (07/04/2019 9:37 AM CDT) HEPATITIS C AB NON-REACTI VE NON-REACTI VE 07/04/2019 3:01 PM CDT [facility] 07/04/2019 9:37 AM CDT Jarod Lopez MD LABORATORY Final Result [facility] [address] [place] [address], from Last 3 Months or Most Recently Relevant to Health Maintenance Insurance CIG Advance Directives * Full Code (Latest Code Status on File) Date Activated Date Inactivated Comments 01/07/2020 8:20 AM 01/11/2020 1:27 PM Care Teams Network Operations Lead Relationship Specialty Start Date End Date Jarod Lopez MD [address] [place] [address] PCP - General FAMILY PRACTICE 09/22/18
[2024-09-20 06:26] VITALS: BP 136/76; PULSE 65; RESP 20; TEMP 36.2; O2SAT 99
[2024-09-20] MEDS: LACTATED RINGERS 1,000 ML 150 ML IV CONT (06:40)
--- NOTE | 2024-09-20 07:12 | P.PNAN_ITS ---
Anes - Initial Pre Proc Eval Procedure: Operation Date: 09/20/24 07:30 Proposed Procedures p Screening Colonoscopy - Edilberto Rocha MD Date/Time: 09/20/24 07:12 Surgeon: Edilberto Rocha MD Pre Op Diagnosis: Encounter for screening for malignant neoplasm of Patient Data Age: 64 Gender: M Height: 1.8 m Weight: 102.2 kg Last Vital Signs Temp 97.1 F L 09/20/24 06:26 Pulse 65 09/20/24 06:26 Resp 20 09/20/24 06:26 BP 136/76 09/20/24 06:26 Pulse Ox 99 09/20/24 06:26 O2 Del Method Room Air 09/20/24 06:26 Allergies Allergy/AdvReac Type Severity Reaction Status Date / Time No Known Allergies Allergy Unknown Verified 09/20/24 06:23 Home Medications ?Medication ?Instructions ?Recorded ?Confirmed ?Type aspirin 81 mg tablet,delayed 81 mg PO DAILY 12/15/19 09/20/24 History release (David Low Dose Aspirin) docusate sodium 100 mg capsule 100 mg PO BID 12/15/19 09/20/24 History (Colace) esomeprazole magnesium 20 mg 20 mg PO DAILY 12/15/19 09/20/24 History capsule,delayed release (Nexium) fiber 1 cap PO DAILY 12/15/19 09/20/24 History tamsulosin 0.4 mg capsule 0.4 mg PO Q24H 01/04/24 09/20/24 History rosuvastatin 20 mg tablet See Rx Instructions .Route 04/05/24 09/20/24 Rx .COMPLEX #90 tabs diclofenac sodium 75 mg See Rx Instructions .Route 06/20/24 09/20/24 Rx tablet,delayed release .COMPLEX #60 tabs tizanidine 4 mg tablet (Zanaflex) 4 mg PO TID PRN muscle spasticity 08/10/24 09/05/24 Rx #90 tabs hydrocodone 10 mg-acetaminophen 1 tablet PO Q6H PRN pain #120 tabs 09/13/24 09/20/24 Rx 325 mg tablet Patient hx anesthesia problems: none Family hx anesthesia problems: none Results Review: All pre-operative results and documents have been reviewed as part of the pre- operative evaluation. [facility] Past Medical History Medical History Cholecystectomy planned BMI 36.0-36.9,adult Muscle spasm of right leg Right shoulder pain Right knee pain Right ankle pain Chest pain Dyspnea on exertion Polyarthritis Ankle arthritis Polydipsia Urinary leakage Leg muscle spasm Gangrene of gallbladder in cholecystitis GERD (gastroesophageal reflux disease) Cervical pain Lumbar spondylosis Mixed hyperlipidemia Surgical History Surgical History History of prostatectomy H/O Spinal surgery H/O rotator cuff surgery Hx of hernia repair Hx of colonoscopy Family History Family History Mother Family history of lung cancer Brain cancer Father COPD (chronic obstructive pulmonary disease) Broken heart syndrome Sibling Melanoma Sibling No problems noted. 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 Hyperlipidemia, BMI 31. Pt had a stress test 2022 which was nml without ischemia. Informed Consent: The patient's anesthetic plan and its attendant risks and benefits were discussed with the patient/family/POA. Questions were solicited and answers provided to the satisfaction of the patient/family/POA.
--- NOTE | 2024-09-20 07:29 | PM.IMHP ---
H&P: HPI History of Present Illness Date/Time: 09/20/24 07:29 Chief Complaint: history of colon polyps Narrative: The patient has a history of colonic polyps, the last colonoscopy was approximately 5 years ago. Review of Systems Review of Systems: All systems reviewed & are unremarkable except as noted in HPI and below PMFSH Past Medical History Medical History Cholecystectomy planned BMI 36.0-36.9,adult Muscle spasm of right leg Right shoulder pain Right knee pain Right ankle pain Chest pain Dyspnea on exertion Polyarthritis Ankle arthritis Polydipsia Urinary leakage Leg muscle spasm Gangrene of gallbladder in cholecystitis GERD (gastroesophageal reflux disease) Cervical pain Lumbar spondylosis Mixed hyperlipidemia Surgical History Surgical History History of prostatectomy H/O Spinal surgery H/O rotator cuff surgery Hx of hernia repair Hx of colonoscopy Family History Family History Mother Family history of lung cancer Brain cancer Father COPD (chronic obstructive pulmonary disease) Broken heart syndrome Sibling Melanoma Sibling No problems noted. 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 Gender identity (if verbalized by the patient): Male Spiritual care concerns: No Meds Home Medications and Allergies Home Medications ?Medication ?Instructions ?Recorded ?Confirmed ?Type aspirin 81 mg tablet,delayed 81 mg PO DAILY 12/15/19 09/20/24 History release (David Low Dose Aspirin) docusate sodium 100 mg capsule 100 mg PO BID 12/15/19 09/20/24 History (Colace) esomeprazole magnesium 20 mg 20 mg PO DAILY 12/15/19 09/20/24 History capsule,delayed release (Nexium) fiber 1 cap PO DAILY 12/15/19 09/20/24 History tamsulosin 0.4 mg capsule 0.4 mg PO Q24H 01/04/24 09/20/24 History rosuvastatin 20 mg tablet See Rx Instructions .Route 04/05/24 09/20/24 Rx .COMPLEX #90 tabs diclofenac sodium 75 mg See Rx Instructions .Route 06/20/24 09/20/24 Rx tablet,delayed release .COMPLEX #60 tabs tizanidine 4 mg tablet (Zanaflex) 4 mg PO TID PRN muscle spasticity 08/10/24 09/05/24 Rx #90 tabs hydrocodone 10 mg-acetaminophen 1 tablet PO Q6H PRN pain #120 tabs 09/13/24 09/20/24 Rx 325 mg tablet Allergies Allergy/AdvReac Type Severity Reaction Status Date / Time No Known Allergies Allergy Unknown Verified 09/20/24 06:23 Vital Signs Vital Signs - 24 hr 09/20/24 06:26 Temperature 97.1 F L Pulse Rate 65 Respiratory Rate 20 Blood Pressure 136/76 Pulse Oximetry 99 Oxygen Delivery Room Air Exam Const: General: cooperative and healthy appearing Resp: Effort & Inspection: normal respiratory effort and able to speak in complete sentences Auscultation: clear to auscultation bilaterally Cardio: Rate: regular rate Rhythm: regular rhythm GI: Inspection: normal to inspection GI Palp: No No hepatosplenomegaly present Auscultation: normal bowel sounds Rectal Exam: deferred Skin: General skin exam: normal color Psych: Appearance: grossly normal Mental Status: mental status grossly normal Assessment and Plan Assessment and plan (1) Colon cancer screening: Code(s): Z12.11 - Encounter for screening for malignant neoplasm of colon Status: Acute Assessment and Plan: The patient is deemed a good candidate for the procedure. Consent signed. Will proceed.
[2024-09-20 07:51] VITALS: BP 138/94; PULSE 69; RESP 20; O2SAT 94
[2024-09-20 08:01] VITALS: BP 135/87; PULSE 67; RESP 16; O2SAT 95
[2024-09-20 08:11] VITALS: BP 129/83; PULSE 75; RESP 16; O2SAT 97
== END 2024-09-20 08:21 | disposition home or self-care (01) ==
PROVIDERS: PCP Family Medicine; Referring Provider Family Medicine; Visit Provider Internal Medicine Gastroenterology
PROC: 0DJD8ZZ Inspection of Lower Intestinal Tract, Via Natural or Artificial Opening Endoscopic (ICD-10-PCS; CPT 45378; principal; 2024-09-20 07:30)
DX: Z12.11 Encounter for screening for malignant neoplasm of colon (principal); Q27.33 Arteriovenous malformation of digestive system vessel; K21.9 Gastro-esophageal reflux disease without esophagitis; E78.2 Mixed hyperlipidemia; M62.838 Other muscle spasm; R32 Unspecified urinary incontinence; M43.06 Spondylolysis, lumbar region; M19.079 Primary osteoarthritis, unspecified ankle and foot; E66.9 Obesity, unspecified; Z68.31 Body mass index [BMI] 31.0-31.9, adult; Z79.82 Long term (current) use of aspirin; Z79.891 Long term (current) use of opiate analgesic; Z98.890 Other specified postprocedural states; Z98.1 Arthrodesis status; Z86.0100 Personal history of colon polyps, unspecified; Z85.46 Personal history of malignant neoplasm of prostate; Z92.3 Personal history of irradiation; Z80.1 Family history of malignant neoplasm of trachea, bronchus and lung; Z80.8 Family history of malignant neoplasm of other organs or systems
CPT/HCPCS: G0105; J2704; J7120